=== PATIENT | female | born 1940 | race Caucasian/White ===

== ENCOUNTER 2017-05-27 09:15 | Inpatient (IN) | payer MEDICARE, OTHER ==
[~2017-05-27] VITALS: Ht 157.5 cm; Wt 92.0 kg
--- NOTE | ~2017-05-27 | DS ---
Unit #: [id number] #: [id number] Patient: JORDEN PA [id number] [address] [address] [id number] I MR#: [id number] NAME: JORDEN PA ROOM: 553 Age: 76 Sex: F Admission Date: 05/28/2017 : 1940 Discharge Date: 06/02/2017 Attending Physician: David Borjas M.D. Primary Care Physician: No Primary Care Physician DISCHARGE SUMMARY DISCHARGE DIAGNOSES 1. Unstable angina. 2. Status post cardiac cath done on May 28, 2017, showed significant three-vessel coronary artery disease. a. Left main: Normal. b. Left anterior descending: Left anterior descending proximal normal. Left anterior descending mid 70% to 75% with a distal 30% stenosis. c. Ramus normal. d. Left circumflex 80% to 90% at the origin of the first obtuse marginal, and the first obtuse marginal had a 30% and proximal 50%. Mid and distal left circumflex had a 75% stenosis and the posterior obtuse marginal was normal. e. Right coronary artery: Proximal was normal. The mid had a 99.9% stenosis and a distal 70% stenosis in the posterior descending artery and PLV was small. f. Left ventricular ejection fraction was 60%. g. Planned staged percutaneous coronary intervention. 3. Status post percutaneous coronary intervention and drug-eluting stent performed on May 31, 2017, to the distal and mid right coronary artery and the proximal left circumflex and the post marginal branch of the left circumflex. Noted first obtuse marginal of the left circumflex is in stent fci. 4. Left ventricular ejection fraction of 55%. 5. A 2D echo done on May 28, 2017 showed left ventricular ejection fraction of 55%, aortic valve leaflets sclerotic with no stenosis, mild aortic regurgitation, mild tricuspid regurgitation, small pericardial effusion versus fat tissue. 6. Diabetes mellitus type 2. 7. Hypertension. 8. Dyspnea after the cath, likely secondary to Brilinta that was changed to Effient. 9. Right groin hematoma post cath, no extending into pelvis or retroperitoneum on CT abdomen and pelvis report. DISCHARGE MEDICATIONS 1. Ranexa 500 mg p.o. twice daily, new medication. 2. Effient 10 mg p.o. daily. 3. Omeprazole 20 mg p.o. daily. 4. Glucotrol 10 mg p.o. twice daily before meals. 5. Levothyroxine 125 mcg p.o. daily. 6. Lipitor 80 mg p.o. at bedtime. 7. Diovan 80 mg p.o. daily, that is half tablet of 160 mg. 8. Levemir 40 units subcutaneous in the morning and 25 units Unit #: [id number] #: [id number] Patient: JORDEN PA subcutaneous at bedtime. 9. Glumetza 1000 mg p.o. twice daily. 10. Ativan 0.5 mg p.o. twice daily and p.r.n. 11. Carvedilol 12.5 mg p.o. twice daily. 12. Imdur ER 60 mg p.o. daily. 13. Nitrostat 0.4 mg sublingual every five minutes x3 p.r.n. for chest pain. HOSPITAL COURSE This is a 76-year-old female of [place] origin, who needs an resort keeper with conversation and her daughter is also a nurse. The patient came to the emergency room with increased shortness of breath that was worsening over the last few weeks and increased lower extremity edema, especially on the right. Patient had been started on medical treatment in [place] that included Valsartan and diuretics. Patient complained of some pain at the base of neck that radiated toward the jaw and also some substernal chest tightness that was mostly with exertion. She denied any diaphoresis, nausea, or vomiting with the jaw and chest discomfort. She said what would relieve the pain is stopping and resting. She has never had any cardiac history before this admission. No history of any rheumatic fever or heart murmur. She did complain of having more increased shortness of breath that was worsening over the last three weeks. I saw increased fatigueness and weakness. Her initial cardiac enzymes remain negative. Her chest x-ray showed some mild cardiomegaly with increased interstitial pulmonary markings consistent with early left ventricular failure with fluid overload. Patient's BNP was found to be 87. Her initial cardiac enzymes: First set was normal and then her troponin increased to 3.11 a few hours later. Patient was started on long-acting nitrates, aspirin, heparin, and Integrilin. Also, initiated a beta bakari in addition to the Diovan for better blood pressure medication. The patient was started on Lasix and also supplemented her electrolytes, especially her potassium. A right lower extremity venous Doppler was performed and it was negative for any DVT. Patient responded well to the diuresing. With her symptoms and her new congestive heart failure, it was felt that she needed a cardiac cath for further evaluation. A 2D echo was done and it did show her LV EF to be about 55%. There was no significant valvular disease. Dr. Borjas did perform a cardiac cath on , which showed significant coronary artery disease. Because Dr. Borjas used 130 mL of contrast during the diagnostic procedure, he opted to do a staged PCI. Two days later, patient had PCI and drug-eluting stents placed to the distal RCA and mid RCA, proximal left circumflex, and the posterior margin of the left circumflex. He did attempt the first obtuse marginal of the left circumflex but it was in stent fci, so it had to be stopped. Patient tolerated the procedure without any problems, except she did have a small hematoma in the right groin site. She did have an ultrasound at that site and it showed just a 4.6 cm x 3.2 cm right groin hematoma with no extending into the pelvis or retroperitoneum. Patient after the heart catheterization continued to have some intermittent jaw and neck pain. Dr. Borjas after a long discussion and examining the patient thought that some of the pain may be secondary to the obtuse marginal one stenosis and some related to some anxiety. Dr. Borjas had a long discussion with the patient and the daughter over the telephone, who is a nurse. At this point, the plan is to continue with current medications for about four to six weeks and then try a re-attempt to do a PCI on the first obtuse marginal again. Dr. Borjas would like that site to heal since it had a recent procedure. Added a small dose of Ativan and started the patient on Ranexa for chronic Unit #: [id number] #: [id number] Patient: BOB BULLAIN,JORDEN angina and increased the dose of beta blockers in addition to keeping on ARB. The patient is walking around in the room and mckeon without any complications. Her vital signs were stable. PHYSICAL EXAMINATION On time of discharge: VITAL SIGNS: Blood pressure is 101/48, heart rate 68, respirations 18, temperature during the night was 100.4 and this morning it is 98.3, O2 saturation is 100% on room air. HEART: S1, S2. Regular rate and rhythm. No clicks, murmurs, or rubs. LUNGS: Diminished, otherwise clear. ABDOMEN: Obese, soft, nontender. EXTREMITIES: Pedal pulses are palpable. No pedal edema. Right groin has a small hematoma but no acute bleeding. DIAGNOSTIC STUDIES LABORATORY: Glucose 295, BUN 19, creatinine 1, eGFR 54.7, sodium 132, potassium 4.9, chloride 104, CO2 of 20, calcium 8. Post procedure angio: CK total is 99, MB is 9.9, and percentage of MB is 10.10. BNP on May 27 showed 87. Fasting lipid profile: Cholesterol is 85, triglycerides 72, LDL 49, HDL 22. TSH 1.38. WBC 5.6, hemoglobin 8.9, hematocrit 27.9, and platelets 157,000. INR is 1.1. IMAGING: CT of the abdomen and pelvis as mentioned shows a 4.6 x 3.2 x 1.9 dense fluid collection in the right groin consistent with a hematoma without any evidence of hematoma extending to the pelvis or retroperitoneum. CARDIOVASCULAR: Latest EKG showed normal sinus rhythm, nothing acute. PLAN/INSTRUCTION 1. The patient will be discharged home today and will be scheduled to see Dr. Borjas on July 15 at 3 p.m. 2. Instruct the patient the importance of dual-antiplatelet therapy to prevent stent closure. 3. Instruct the patient and the daughter the importance of taking the aspirin and Effient in prevention of stent closure, rethrombosis, myocardial infarction, and . The patient and daughter verbalize understanding. 4. Discussed with patient and the daughter risk factor modification and healthy heart lifestyle changes diet for diabetes mellitus and hyperlipidemia. 5. Post cath care, see post cath orders. 6. Again, the patient's daughter has been instructed that Dr. Borjas would like to continue her current cardiac medications for four to six weeks and then try percutaneous coronary intervention on the first obtuse marginal again. The discussion will be made when she comes and sees him at the end of June. 7. He added a small dose of Ativan and Ranexa and increased the doses of beta bakari. 8. Instructed to follow up with her primary care physician in one to two weeks. 9. Instructed to decrease the dose of the patient's Valsartan from 160 mg daily to 80 mg, that is a half tablet p.o. daily to avoid any hypotension but continue on the scheduled dose of carvedilol 12.5 mg p.o. twice daily. 10. Also, added an oral nitrate. Unit #: [id number] #: [id number] Patient: JORDEN PA 11. Instruct the patient on administering sublingual nitroglycerin. 12. Further recommendations pending. Dictated by... Philipp HernandezPJuanisRJuanisNJuanis for Jc Palmer/nakul TD: 06/02/2017 15:31 JOB #: [id number] DISCHARGE SUMMARY Page 1 of 1 X Savannah Ramirez APRN X DISCHARGE SUMMARY
--- NOTE | ~2017-05-27 | CR72 ---
[facility] A Service of [facility] RADIOLOGY TEXT RESULTS PATIENT: JORDEN ELDRIDGE LOCATION: [place] [address] : [birth year] UNIT #: [id number] AGE: [address]: Chelo Borjas MD SEX: F ORDER DR: [id number] [facility] [address] [place], [place] [address] [id number] MR#: [id number] Acc #: [id number] NAME: JORDEN ELDRIDGE : 1940 SEX: F STUDY DATE/TIME: 05/27/2017 10:43 UNIT: [facility] ROOM: STUDY DESCRIPTION: CR Chest Single View Portable Attending Physician: Tyler Haynes M.D. Ordering Physician: Ed Warren Babcock M.D. Primary Care Physician: No Primary Care Physician MEDICAL IMAGING REPORT This report is preliminary unless electronic signature is present EXAM Chest, portable, 05/27/2017, 1043 hours. CLINICAL HISTORY 76-year-old woman with a 2-month history of shortness of air, swelling in both feet. History of diabetes. COMPARISON 01/17/2010 FINDINGS Portable upright chest demonstrates low lung volumes with mild cardiomegaly increased from prior study. There is a tortuous atherosclerotic aorta. There is pulmonary venous distension and basilar vascular crowding without definite edema, pneumonia, or effusion. IMPRESSION Low lung volume film similar to prior study of 2009. Cardiac silhouette is enlarged and increased from prior study which could represent developing cardiomegaly or pericardial fluid. There is mild pulmonary venous distension and basilar vascular crowding but no definite edema, pneumonia, or effusion. Dictated by... Elzbieta Prince M.D. THIS IS AN ELECTRONICALLY VERIFIED REPORT Elzbieta Prince M.D. at 05/27/2017 2:31 PM UDAY/joe TD: 05/27/2017 12:13 [facility] A Service of [facility] RADIOLOGY TEXT RESULTS PATIENT: JORDEN ELDRIDGE LOCATION: [place] [address] : [birth year] UNIT #: [id number] AGE: [address]: Chelo Borjas MD SEX: F ORDER DR: JOB #: [id number] MEDICAL IMAGING REPORT Page 1 of 1 COPY
--- NOTE | ~2017-05-27 | DS ---
Unit #: [id number] #: [id number] Patient: JORDEN PA 225915 [address] [address] [id number] I MR#: [id number] NAME: JORDEN PA ROOM: 553 Age: Sex: F Admission Date: 05/28/2017 : 1940 Discharge Date: 06/02/2017 Attending Physician: David Borjas M.D. Primary Care Physician: Primary Care Physician No DISCHARGE SUMMARY ADDENDUM The patient initially was given a loading dose and a couple days' dosage of Brilinta. The patient started having some shortness of breath post procedure without any explanation. She was not in any failure. No bronchitis or pneumonia. Dr. Borjas stopped the Brilinta and put the patient on Effient 10 mg p.o. daily instead of the Brilinta. Dictated by... Denice Hernandez/aleena TD: 06/02/2017 16:25 JOB #: [id number] DISCHARGE SUMMARY Page 1 of 1 X Savannah Ramirez APRN DISCHARGE SUMMARY
--- NOTE | ~2017-05-27 | EKG ---
PATIENT: JORDEN ELDRIDGE UNIT #: [id number] Ventricular Rate: 59 BPM Atrial Rate: 59 BPM P-R Interval: 158 ms QRS Duration: 98 ms Q-T Interval: 446 ms QTC Calculation(Bezet): 441 ms P [place]: 41 degrees Calculated R [place]: -7 degrees Calculated T [place]: 26 degrees Diagnosis Line: Sinus bradycardia Diagnosis Line: Otherwise normal ECG Diagnosis Line: When compared with ECG of 28-MAY-2017 05:37, Diagnosis Line: Borderline criteria for Inferior infarct are no Diagnosis Line: longer Present Diagnosis Line: Confirmed by BROOKS KIMBALL MD ([id number]) on Diagnosis Line: 05/31/2017 12:22:21 PM INTERPRETING MD: LUCHO
--- NOTE | ~2017-05-27 | EKG ---
PATIENT: JORDEN ELDRIDGE UNIT #: [id number] Ventricular Rate: 65 BPM Atrial Rate: 65 BPM P-R Interval: 160 ms QRS Duration: 94 ms Q-T Interval: 446 ms QTC Calculation(Bezet): 463 ms P [place]: 29 degrees Calculated R [place]: 10 degrees Calculated T [place]: 10 degrees Diagnosis Line: Normal sinus rhythm Diagnosis Line: Possible Inferior infarct , age undetermined Diagnosis Line: Abnormal ECG Diagnosis Line: Diagnosis Line: Confirmed by DAVIS THORNTON MD ([id number]) on 05/28/2017 Diagnosis Line: 10:55:27 AM INTERPRETING MD: HILLARY ROSENBERG
--- NOTE | ~2017-05-27 | US84 ---
[id number] [facility] [address]. [place], [place] [address] [id number] I MR#: [id number] Acc #: [id number] NAME: JORDEN ELDRIDGE : 1940 SEX: F STUDY DATE/TIME: 05/27/2017 11:53 UNIT: C5B ROOM: 552 STUDY DESCRIPTION: US LE Veins Complete Jeremie Stdy Attending Physician: Chelo Borjas M.D. Ordering Physician: Ed Doctor [id number] [facility] Primary Care Physician: Primary Care Physician No MEDICAL IMAGING REPORT This report is preliminary unless electronic signature is present EXAM Color Doppler ultrasound examination of both lower extremities HISTORY Bilateral leg pain and swelling for the past week. TECHNIQUE Ultrasound evaluation was performed with alas-scale color-flow and Doppler spectral waveform analysis. TECHNIQUE Venous ultrasound examination of both lower extremities was performed using grayscale, spectral Doppler and color flow Doppler imaging. FINDINGS The examination is negative. There is no evidence of deep venous thrombus from the groin to the lower calf bilaterally. Visualized greater saphenous veins are also patent. IMPRESSION Negative examination. No evidence of lower extremity deep venous thrombosis. Dictated by... Sami Fernandez M.D. THIS IS AN ELECTRONICALLY VERIFIED REPORT Sami Fernandez M.D. at 05/27/2017 4:33 PM GABRIELE/dhara TD: 05/27/2017 13:48 JOB #: [id number] MEDICAL IMAGING REPORT Page 1 of 1 COPY
--- NOTE | ~2017-05-27 | CT4 ---
[facility] A Service of [facility] RADIOLOGY TEXT RESULTS PATIENT: JORDEN PA LOCATION: [facility] 55-01 : 40 UNIT #: [id number] AGE: [address]: David Borjas MD SEX: F ORDER DR: [id number] [facility] [address] [place], [place] [address] [id number] I MR#: [id number] Acc #: [id number] NAME: JORDEN PA : 1940 SEX: F STUDY DATE/TIME: 06/01/2017 09:27 UNIT: C5B ROOM: [facility] STUDY DESCRIPTION: CT Abd and Pelv Wo Cont Attending Physician: David Borjas M.D. Ordering Physician: David Borjas M.D. Primary Care Physician: Primary Care Physician No MEDICAL IMAGING REPORT This report is preliminary unless electronic signature is present EXAM CT abdomen and pelvis without contrast, 06/01/2017 09:27 hours HISTORY 76-year-old who underwent cardiac catheterization yesterday morning with large hematoma at access site in the right groin, bilateral lower extremity edema for 2 weeks in [place]. Evaluate for hematoma. COMPARISON CT abdomen and pelvis, 04/28/2015 TECHNIQUE Helical noncontrasted images were obtained from the lung bases through the pubic symphysis. Sagittal and coronal reconstructions were performed. Total exam DLP 1,383 mGy-cm. This CT exam was performed with one or more of the following radiation dose reduction techniques: automatic exposure control, adjustment of mA and/or kV according to patient size, and iterative reconstruction. FINDINGS Images through the lung bases are clear. The distal esophagus is normal. Noncontrasted images through the abdomen demonstrate no liver or splenic lesion. There is likely fatty change in the liver. The spleen, pancreas, bile ducts are normal. The gallbladder is surgically absent. The adrenal glands are normal. There is contrast excreted into the renal collecting systems and ureters likely retained from yesterday's IV contrast administration. There is no obstruction. There is a Ratliff catheter in the bladder with a small amount of urine and contrast present. The stomach is normal. There is no small bowel distension. The appendix STS. [facility] A Service of [facility] RADIOLOGY TEXT RESULTS PATIENT: JORDEN PA LOCATION: C5B 553-01 : [birth year] UNIT #: [id number] AGE: [address]: David Borjas MD SEX: F ORDER DR: is normal. There is moderate stool throughout the colon. CT pelvis demonstrates a small postmenopausal uterus with no adnexal mass. There is trace free fluid in the cul-de-sac. In the right groin, there is a dense fluid collection measuring 4.6 x 3.2 x 1.9 cm. There is a large area of surrounding linear injection of the fat extending inferolaterally over the right hip into the skin surface in the midline where there is skin thickening and likely corresponds to the reported bruising. There is no extension of this hematoma into the pelvis. IMPRESSION 1. There is a 4.6 x 3.2 x 1.9 cm well defined dense fluid collection in the right groin most consistent with a hematoma. There is fairly extensive linear injection of the adjacent fat extending anteromedially to the skin surface and laterally over the hip which likely represents additional blood and likely correlates with reported bruising at the skin. This does not extend into the pelvis or retroperitoneum. 2. CT abdomen demonstrates no acute findings. There is contrast excretion from the kidneys likely from yesterday's catheterization. There is a Ratliff catheter in the bladder. Dictated by... Elzbieta Prince M.D. THIS IS AN ELECTRONICALLY VERIFIED REPORT Elzbieta Prince M.D. at 06/02/2017 9:22 AM UDAY/leeann TD: 06/01/2017 16:07 JOB #: [id number] MEDICAL IMAGING REPORT Page 1 of 1 COPY
--- NOTE | ~2017-05-27 | CO ---
Unit #: [id number] #: [id number] Patient: JORDEN ELDRIDGE [id number] [address] [address] [id number] E MR#: [id number] NAME: JORDEN ELDRIDGE ROOM: Age: 76 Sex: F Admission Date: 05/27/2017 : 1940 Attending Physician: Tyler Haynes M.D. Primary Care Physician: Adia Primary Care Physician Consultation Date: 05/27/2017 CONSULTATION REPORT REASON FOR ADMISSION Exertional angina and congestive heart failure. HISTORY OF PRESENT ILLNESS Ms. Mantilla is a 76-year-old female of [place] origin who returned from [place] only yesterday. She came to the emergency room this morning because of worsening shortness of breath over the last few weeks, bilateral leg edema worse on the right, and these symptoms have progressed despite medical treatment started in [place] that included ARB valsartan, diuretics. The patient denies any orthopnea or nocturnal dyspnea. On walking about 100 feet on level surface she complains of pain at the base of the neck that radiates toward the jaw, but is not accompanied by any diaphoresis, nausea or vomiting. Associated with this exertional jaw pain is shortness of breath to an extent that she has to stop and obtain relief. She denies any trauma to the legs to have caused any swelling. She denies any calf tenderness, any difficulty in bearing weight on the right leg, and has not had any increased frequency of micturition during the night. She denies any hemoptysis or pleuritic pain and has not had any recent weight loss or weight gain. The patient denies any history of previous myocardial infarction. There is no history of rheumatic fever or heart murmur. Until about three weeks ago she was able to do most of her activities without any limitations, but now she complains of exertional dyspnea, fatigability and weakness. PAST MEDICAL HISTORY 1. Hypertension. 2. Noninsulin dependent diabetes mellitus. 3. She is unaware of hyperlipidemia. PAST SURGICAL HISTORY Cholecystectomy by a midline abdominal scar. SOCIAL HISTORY She is a lifetime nonsmoker and does not abuse alcohol FAMILY HISTORY One brother at the age of 75 from myocardial infarction. No other member of the family has ischemic heart disease. PHYSICAL EXAMINATION GENERAL: Mildly obese middle-aged female in no acute cardiorespiratory distress. VITALS: Blood pressure 142/76, heart rate 68 beats per minute and Unit #: [id number] #: [id number] Patient: JORDEN ELDRIDGE. CHEST: Normal to palpitation and percussion. There is good air entry bilaterally without any rales or rhonchi. HEART: No ectopy noted. No jugular venous distension or ankle edema. Pedal pulses are absent. There is 2+ leg edema on the right all the way to the right knee with 1+ leg edema on the left. Cardiac exam shows apical impulse is palpable in the fifth intercostal space and midclavicular line and is normal. Both heart sounds are normal. An S4 gallop is heard. There is no murmur. ABDOMEN: No hepatosplenomegaly, free fluid or masses. RECTAL: Not done. NEUROLOGIC: The patient is alert and awake, moving all four extremities. There is no sensory deficit. 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 DIAGNOSTIC STUDIES IMAGING: Chest x-ray shows mild cardiomegaly. Increased interstitial pulmonary markings, consistent with early left ventricular failure with fluid overload. LABORATORY: GFR is 71.7, CO2 28, potassium 4.2. Glucose is 258. TSH will be rechecked. Hemoglobin is 10.7, hematocrit 33.9, platelet count 203,000, white blood cell count 6,700. BNP is awaited. CARDIOVASCULAR: Electrocardiogram shows normal sinus rhythm. Left axis deviation. Otherwise normal. ASSESSMENT 1. Exertional angina pectoris. 2. Congestive heart failure. 3. Rule out significant ischemic heart disease. 4. Noninsulin dependent diabetes mellitus. 5. Obesity. 6. Unilateral right leg edema. PLAN The patient is being started on long-acting nitrates, aspirin, heparin as low molecular weight enoxaparin. Because of exertional nature of symptoms, beta bakari carvedilol 3.125 mg p.o. b.i.d. is being started in addition to Diovan 160 mg at nighttime. I have added Lasix 40 mg daily and potassium supplement 20 mEq daily. I have advised the patient that a venous Doppler ultrasound should be performed on the right lower extremity to rule out DVT in a patient who has traveled recently and now has unilateral right leg edema. A cardiac catheterization will be scheduled for tomorrow via the right radial artery approach. This was all discussed with the patient through her daughter, who speaks fluent Czech and is a nurse by profession. Dictated by... Jc Palmer/halima TD: 05/27/2017 12:06 JOB #: [id number] Unit #: [id number] #: [id number] Patient: JORDEN ELDRIDGE CC: David Borjas M.D. CONSULTATION REPORT Page 1 of 1 X David Borjas MD X CONSULTATION REPORT
--- NOTE | ~2017-05-27 | EKG ---
PATIENT: JORDEN ELDRIDGE UNIT #: [id number] Ventricular Rate: 60 BPM Atrial Rate: 60 BPM P-R Interval: 166 ms QRS Duration: 98 ms Q-T Interval: 432 ms QTC Calculation(Bezet): 432 ms P [place]: 59 degrees Calculated R [place]: -9 degrees Calculated T [place]: 43 degrees Diagnosis Line: Normal sinus rhythm Diagnosis Line: Normal ECG Diagnosis Line: Diagnosis Line: Confirmed by ROCKY SUGGS MD ([id number]) on Diagnosis Line: 05/28/2017 9:03:13 AM INTERPRETING MD: ES ROSENBERG
--- NOTE | ~2017-05-27 | EKG ---
PATIENT: JORDEN ELDRIDGE UNIT #: [id number] Ventricular Rate: 58 BPM Atrial Rate: 58 BPM P-R Interval: 160 ms QRS Duration: 94 ms Q-T Interval: 442 ms QTC Calculation(Bezet): 433 ms P [place]: 35 degrees Calculated R [place]: -5 degrees Calculated T [place]: 55 degrees Diagnosis Line: Sinus bradycardia Diagnosis Line: Otherwise normal ECG Diagnosis Line: Diagnosis Line: Confirmed by BROOKS KIMBALL MD ([id number]) on Diagnosis Line: 05/31/2017 12:23:41 PM INTERPRETING MDNickie YEPEZ
--- NOTE | ~2017-05-27 | EKG ---
PATIENT: JORDEN ELDRIDGE UNIT #: [id number] Ventricular Rate: 55 BPM Atrial Rate: 55 BPM P-R Interval: 150 ms QRS Duration: 94 ms Q-T Interval: 466 ms QTC Calculation(Bezet): 445 ms P [place]: 31 degrees Calculated R [place]: -14 degrees Calculated T [place]: 22 degrees Diagnosis Line: Sinus bradycardia Diagnosis Line: Otherwise normal ECG Diagnosis Line: No previous ECGs available Diagnosis Line: Confirmed by BROOKS KIMBALL MD ([id number]) on Diagnosis Line: 06/01/2017 3:46:27 PM INTERPRETING MD: [id number]
[~2017-05-27 09:15] MED LIST: AMOXICILLIN PO; ANTIVERT PO; DIOVAN PO; FAMOTIDINE PO; GLUCOTROL PO; HCTZ PO; LIPITOR PO; METFORMIN PO; MOBIC PO; PHENERGAN W/CO120 ML PO; SYNTHROID PO; ZITHROMAX PO
[2017-05-27] MEDS ORDERED: LEVO-T112 MCG PO (09:46)
[2017-05-27] MEDS ORDERED: GLUMETZA500 MG PO (09:46)
[2017-05-27] MEDS ORDERED: DIOVAN160 MG PO (09:46)
[2017-05-27] MEDS ORDERED: OMEPRAZOLE20 M1 PO (09:47)
[2017-05-27] MEDS ORDERED: B-COMPLEX TABL0.4 MG PO (09:47)
[2017-05-27] MEDS ORDERED: ALL DAY ALLERGY10 M3 PO (09:47)
[2017-05-27] MEDS ORDERED: GLUCOSAMINE500 M1 PO (09:48)
[2017-05-27 10:21] LABS: POC - CKMB 1.4 ng/mL (0.0-7.9); POC - TROPONIN <0.05 ng/mL (<=0.05)
[2017-05-27 10:40] LABS: BASOPHIL# 0.1 X10e3 (0-0.3); BASOPHIL% 0.8 % (0-2.5); EOSINOPHIL# 0.2 X10e3 (0-0.7); EOSINOPHIL% 3.5 % (0.0-7.0); HEMATOCRIT 33.9 % (35.0-45.0); HEMOGLOBIN 10.7 gm/dL (12.0-16.0); LYMPHOCYTE% 29.5 % (17.0-45.0); MEAN CELL VOLUME 82.7 FL (83-96); MEAN CORPUSCULAR HEMOGLOBIN 26.1 PG (28-34); MEAN CORPUSCULAR HGB CONC 31.5 g/dL (30-36); MEAN PLATELET VOLUME 9.5 FL (6.5-11.5); MONOCYTE# 0.4 X10e3 (0-1.0); MONOCYTE% 6.2 % (3.0-12.0); PLATELET COUNT 203 X10e3 (140-420); RED CELL DISTRIBUTION WIDTH 15.4 % (11.0-15.5); WHITE BLOOD COUNT 6.7 X10e3 (4.0-10.5)
[2017-05-27 10:45] LABS: DIFF IND NO
[2017-05-27 11:05] LABS: BUN/CREATININE RATIO 22.5; CALCIUM SERUM 9.1 mg/dL (8.4-10.2); CREATININE SERUM 0.8 mg/dL (0.6-1.4); GLOM FILT RATE Estimated 71.7 mL/min (>60); POTASSIUM 4.2 mmol/L (3.5-5.1)
[2017-05-28] MEDS ORDERED: LEVEMIR100 UNITS/ SUBQ ×2 (07:43→07:44)
[2017-05-28 07:44] LABS: HEMATOCRIT 34.7 % (35.0-45.0); MEAN CELL VOLUME 82.7 FL (83-96); MEAN CORPUSCULAR HEMOGLOBIN 26.2 PG (28-34); MEAN CORPUSCULAR HGB CONC 31.7 g/dL (30-36); MEAN PLATELET VOLUME 9.4 FL (6.5-11.5); RED BLOOD COUNT 4.19 X10e (3.90-5.30); RED CELL DISTRIBUTION WIDTH 15.6 % (11.0-15.5); WHITE BLOOD COUNT 6.7 X10e3 (4.0-10.5)
[2017-05-28 08:07] LABS: INR 1.1; PARTIAL THROMBOPLASTIN TIME 25.5 SECONDS (23.5-31.3); PROTHROMBIN TIME (PATIENT) 11.7 SECONDS (10.0-11.7)
[2017-05-28 08:10] LABS: BUN/CREATININE RATIO 21.11; CALCIUM SERUM 9.1 mg/dL (8.4-10.2); CREATININE SERUM 0.9 mg/dL (0.6-1.4); GLOM FILT RATE Estimated 62.2 mL/min (>60)
[2017-05-30 08:21] LABS: CHOLESTEROL 107 mg/dL (0-200); HDL CHOLESTEROL 33 mg/dL (35-95); LDL CHOLESTEROL 61 mg/dL (-130); LDL/HDL RATIO 2 RATIO (0-4); TRIGLYCERIDES 66 mg/dL (10-160)
[2017-05-31 07:40] LABS: BASOPHIL% 0.4 % (0-2.5); DIFF IND NO; EOSINOPHIL# 0.4 X10e3 (0-0.7); EOSINOPHIL% 5.7 % (0.0-7.0); HEMATOCRIT 32.1 % (35.0-45.0); HEMOGLOBIN 10.2 gm/dL (12.0-16.0); LYMPHOCYTE# 1.2 X10e3 (1.0-3.5); LYMPHOCYTE% 16.8 % (17.0-45.0); MEAN CELL VOLUME 82.6 FL (83-96); MEAN CORPUSCULAR HEMOGLOBIN 26.4 PG (28-34); MEAN CORPUSCULAR HGB CONC 31.9 g/dL (30-36); MEAN PLATELET VOLUME 9.5 FL (6.5-11.5); MONOCYTE# 0.4 X10e3 (0-1.0); NEUTROPHIL# 4.9 X10e3 (1.5-7.1); NEUTROPHIL% 71.1 % (40-75); PLATELET COUNT 177 X10e3 (140-420); RED BLOOD COUNT 3.88 X10e (3.90-5.30); RED CELL DISTRIBUTION WIDTH 15.2 % (11.0-15.5)
[2017-05-31 07:52] LABS: INR 1.1; PARTIAL THROMBOPLASTIN TIME 28.5 SECONDS (23.5-31.3); PROTHROMBIN TIME (PATIENT) 11.7 SECONDS (10.0-11.7)
[2017-05-31 08:14] LABS: CALCIUM SERUM 8.7 mg/dL (8.4-10.2); CREATININE SERUM 0.8 mg/dL (0.6-1.4); GLOM FILT RATE Estimated 71.7 mL/min (>60); POTASSIUM 4.1 mmol/L (3.5-5.1)
[2017-05-31 19:00] LABS: ANGIO %MB 11.6 % (0.0-4.0); ANGIO MB 7.4 ng/ml
[2017-06-01 03:01] LABS: GLOM FILT RATE Estimated 54.7 mL/min (>60); POTASSIUM 4.9 mmol/L (3.5-5.1)
[2017-06-01 03:14] LABS: BASOPHIL% 0.7 % (0-2.5); EOSINOPHIL# 0.2 X10e3 (0-0.7); EOSINOPHIL% 4.1 % (0.0-7.0); HEMATOCRIT 27.9 % (35.0-45.0); HEMOGLOBIN 8.9 gm/dL (12.0-16.0); LYMPHOCYTE# 0.9 X10e3 (1.0-3.5); LYMPHOCYTE% 15.8 % (17.0-45.0); MEAN CELL VOLUME 83.7 FL (83-96); MEAN CORPUSCULAR HEMOGLOBIN 26.7 PG (28-34); MEAN CORPUSCULAR HGB CONC 31.9 g/dL (30-36); MONOCYTE# 0.4 X10e3 (0-1.0); MONOCYTE% 6.8 % (3.0-12.0); NEUTROPHIL# 4.1 X10e3 (1.5-7.1); NEUTROPHIL% 72.6 % (40-75); PLATELET COUNT 157 X10e3 (140-420); RED BLOOD COUNT 3.33 X10e (3.90-5.30); RED CELL DISTRIBUTION WIDTH 15.7 % (11.0-15.5); WHITE BLOOD COUNT 5.6 X10e3 (4.0-10.5)
[2017-06-01 03:17] LABS: DIFF IND NO
[2017-06-01 03:22] LABS: ANGIO MB 9.9 ng/ml
[2017-06-02] MEDS ORDERED: RANEXA500 MG PO (17:27)
[2017-06-02] MEDS ORDERED: EFFIENT10 MG PO (17:28)
[2017-06-02] MEDS ORDERED: LIPITOR PO (17:29)
[2017-06-02] MEDS ORDERED: ASPIRIN81 MG PO (17:33)
[2017-06-02] MEDS ORDERED: CARVEDILOL12.5 MG PO (17:34)
[2017-06-02] MEDS ORDERED: ATIVAN0.5 MG PO (17:34)
[2017-06-02] MEDS ORDERED: IMDUR-ER60 M1 PO (17:35)
[2017-06-02] MEDS ORDERED: NITROGLYCERIN0.4 MG SL (17:37)
== END 2017-06-02 18:45 | disposition home or self-care (01) | DRG 247 ==
LOC: CED 09:15 → CEDOF 12:43 → C5B 12:43 → CEDOF 13:33 → C5B 13:33 → CEDOF 05-28 15:30 → C5B 05-28 15:30
PROVIDERS: Emergency Medicine; Internal Medicine Cardiovascular Disease
PROC: B24BYZZ Ultrasonography of Heart with Aorta using Other Contrast (ICD-10-PCS; principal; 2017-05-28)
PROC: 4A023N7 Measurement of Cardiac Sampling and Pressure, Left Heart, Percutaneous Approach (ICD-10-PCS; 2017-05-28)
PROC: B211YZZ Fluoroscopy of Multiple Coronary Arteries using Other Contrast (ICD-10-PCS; 2017-05-28)
PROC: B215YZZ Fluoroscopy of Left Heart using Other Contrast (ICD-10-PCS; 2017-05-28)
PROC: 027136Z Dilation of Coronary Artery, Two Arteries with Three Drug-eluting Intraluminal Devices, Percutaneous Approach (ICD-10-PCS; 2017-05-31)
DX: I25.110 Atherosclerotic heart disease of native coronary artery with unstable angina pectoris (principal); R06.00 Dyspnea, unspecified; E11.9 Type 2 diabetes mellitus without complications; I08.2 Rheumatic disorders of both aortic and tricuspid valves; I11.9 Hypertensive heart disease without heart failure; L76.32 Postprocedural hematoma of skin and subcutaneous tissue following other procedure; T50.995A Adverse effect of other drugs, medicaments and biological substances, initial encounter; Y84.0 Cardiac catheterization as the cause of abnormal reaction of the patient, or of later complication, without mention of misadventure at the time of the procedure; Z90.49 Acquired absence of other specified parts of digestive tract; E66.9 Obesity, unspecified; R60.9 Edema, unspecified; Z79.84 Long term (current) use of oral hypoglycemic drugs; Z87.891 Personal history of nicotine dependence; Z68.35 Body mass index [BMI] 35.0-35.9, adult
CPT/HCPCS: 36415; 71010; 74176; 80048; 80061; 82550; 82553; 82947; 83880; 84443; 84484; 85025; 85027; 85347; 85610; 85730; 93005; 93306; 93970; 99285; C1725; C1769; C1874; C1887; C1894; J0461; J1644; J1650; J1815; J2250; J2270; J2405; J3010